=== PATIENT | male | born 2000 | race Hispanic/Latino ===

== ENCOUNTER 2022-03-02 21:50 | Emergency (ER) | payer SELFPAY ==
[2022-03-02] MEDS ORDERED: Lidocaine 1% (PF) 30 ML VIAL ONE (22:08)
== END 2022-03-02 22:46 ==
LOC: CSHERS 21:50
DX: S01.511A Laceration without foreign body of lip, initial encounter (principal); W50.0XXA Accidental hit or strike by another person, initial encounter
CPT/HCPCS: 12011; J2001